=== PATIENT | male | born 1965 | race Caucasian/White ===

== ENCOUNTER 2016-08-21 16:59 | Inpatient (IN) | payer OTHER ==
[2016-08-21] MEDS ORDERED: Piperacillin/Tazobactam VIAL*) 3.375 GM VIAL (COMPD & OVERRIDE) IVPB ONE (17:50)
[2016-08-21] MEDS ORDERED: Lidocaine 2% JELLY* 6 ML JELLY TOPICAL ONE (18:00)
[2016-08-21] MEDS ORDERED: Bupivacaine 0.5% W/EPI SDV* 30 ML VIAL ONE (18:00)
[2016-08-21] MEDS ORDERED: Lidocaine 1% INJ* 10 MG/ML 30 ML SDV ONE (18:00)
[2016-08-21] MEDS ORDERED: Succinylcholine* 20 MG/ML 10 ML VIAL ONE (18:31)
[2016-08-21] MEDS ORDERED: Propofol* 10 MG/ML 20 ML BTL IV PUSH ONE ×2 (18:31→19:23)
[2016-08-21] MEDS ORDERED: fentaNYL* 50 MCG/ML 2 ML VIAL (100 MCG VIAL) ONE ×2 (18:31→19:23)
[2016-08-21] MEDS ORDERED: Lidocaine 2% PF * 5 ML VIAL ONE (18:31)
[2016-08-21] MEDS ORDERED: Acetaminophen IV 1GM/100ML * 100 ML ONE (19:49)
[2016-08-21] MEDS ORDERED: Acetaminophen IV 1GM/100ML * 100 ML IVPB ONE (19:50)
[2016-08-21] MEDS ORDERED: fentaNYL* 50 MCG/ML 2 ML VIAL (100 MCG VIAL) IV PRN (19:50)
[2016-08-21] MEDS ORDERED: Ondansetron INJ* 2 MG/ML VIAL IV PRN ×2 (19:50→19:55)
[2016-08-21] MEDS ORDERED: Morphine INJ* 2 MG/ML 1 ML SYRINGE IV PRN (19:55)
[2016-08-21] MEDS ORDERED: Acetaminophen TAB* 325 MG PO PRN (19:55)
--- NOTE | 2016-08-21 20:01 | SURGPN ---
Brief Operative Note - Surgery Procedures: Procedures OPERATIVE REPORT PRE-OP: Roshni-anal pain POST-OP: Same Roshni-anal abscess not found on exam PROCEDURE: Anorectal exam under anesthesia with rigid proctoscopy SURGEON: MD Ravi ANESTHESIA: General with local ASST: none IVF: 1 liter of crystalloid EBL: min SPECIMEN: none DRAIN: none WOUND CLASS: 4 COMPLICATIONS: none TO PACU
[2016-08-21 20:19] LABS: Hematocrit 40 % (42-52); Hemoglobin 13.4 g/dl (14.0-18.0); Mean Corpuscular HGB Conc 33 g/dl (31-36); Mean Corpuscular Hemoglobin 31 pg (27-31); Mean Corpuscular Volume 93 fL (80-94); Mean Platelet Volume 7 um3 (7.4-10.4); Red Cell Distribution Width 13 % (10.5-15); White Blood Count 13.3 10^3/ul (3.5-10.8)
[2016-08-21 20:36] LABS: Albumin 3.6 g/dL (3.2-5.2); BUN/Creatinine Ratio 9.9 (8-20); Calcium 8.9 mg/dL (8.6-10.3); EGFR African American 99.4 (>60); EGFR Non-African American 77.3 (>60); Globulin 2.7 g/dL (2-4); Total Bilirubin 1.9 mg/dL (0.2-1.0); Total Protein 6.3 g/dL (6.4-8.9)
[2016-08-21] MEDS ORDERED: Iohexol 300* (CONTRAST) 10 ML SDV IV ONE (20:49)
[2016-08-21 21:36] LABS: Urine Bacteria Absent (Absent); Urine Bilirubin Negative (Negative); Urine Glucose Negative (Negative); Urine Nitrite Negative (Negative)
[2016-08-21] MEDS: oxyCODONE/Acetamin 5/325 MG* TAB PO PRN (22:39)
[2016-08-21] MEDS: NS 0.9% 1000 ML* 1,000 ML IV SCH (22:41)
--- NOTE | 2016-08-21 22:55 | RAD ---
INDICATION: Pelvic pain. Evaluate for rectal abscess COMPARISON: None TECHNIQUE: Axial source images were obtained from the iliac crests through the symphysis pubis on administration of 87 mL of Omnipaque 300. FINDINGS: There are no CT abnormalities of the bony pelvis. The prostate is normal in size. There is stranding of the adjacent periprostatic fat. There is a a [id number] amount of free fluid in the intraperitoneal cavity. There is also mesenteric stranding. Evaluation is limited due to lack of oral contrast. There is no definitive intrapelvic abscess. There is a perirectal abscess measuring approximately 2.8 x 3.4 cm in transverse dimensions. There is mild stranding of the perirectal fat. Evaluation of bowel is limited without oral contrast. A portion of the appendix is visualized and appears normal in caliber and is surrounded by pelvic free fluid but this is not localized solely to the periappendiceal region. The superficial soft tissues appear normal. The bladder appears mildly trabeculated. IMPRESSION: 1. THERE IS FREE FLUID WITHIN THE INTRAPERITONEAL CAVITY WITH STRANDING OF THE INTRAPELVIC FAT. NO LOCALIZED ABSCESS IS SEEN. 2. THERE IS A PERIRECTAL ABSCESS DESCRIBED.
[2016-08-22] MEDS: oxyCODONE/Acetamin 5/325 MG* TAB PO PRN ×2 (03:33→23:35)
[2016-08-22] MEDS: NS 0.9% 1000 ML* 1,000 ML IV SCH ×2 (05:24→16:21)
[2016-08-22 06:18] LABS: Hematocrit 36 % (42-52); Hemoglobin 12.1 g/dl (14.0-18.0); Mean Corpuscular HGB Conc 34 g/dl (31-36); Mean Corpuscular Hemoglobin 31 pg (27-31); Mean Corpuscular Volume 93 fL (80-94); Mean Platelet Volume 7 um3 (7.4-10.4); Red Blood Count 3.85 10^6/ul (4.0-5.4); Red Cell Distribution Width 13 % (10.5-15); White Blood Count 12.2 10^3/ul (3.5-10.8)
[2016-08-22 06:22] LABS: Add Diff/Slide Review? Slide Review Added; Comments Flag Yes
[2016-08-22 06:56] LABS: Immature Granulocytes 10 % (0-9); Neutrophil % 76 % (38-83); RBC Morphology Normal (Normal)
[2016-08-22] MEDS ORDERED: Acetaminophen TAB* 325 MG ONE (11:50)
[2016-08-22] MEDS ORDERED: fentaNYL* 50 MCG/ML 2 ML VIAL (100 MCG VIAL) ONE (12:43)
[2016-08-22] MEDS ORDERED: Midazolam* 1 MG/ML 2 ML VIAL (2 MG) ONE (12:44)
[2016-08-22] MEDS ORDERED: Bupivacaine 0.25% EPI 200,000* 30 ML SDV ONE (12:49)
[2016-08-22] MEDS ORDERED: Dexamethasone IV* 4 MG/ML 1 ML (4 MG) ONE (13:02)
[2016-08-22] MEDS ORDERED: Famotidine IV* 10 MG/ML 2 ML (20 mg) ONE (13:02)
[2016-08-22] MEDS ORDERED: Propofol* 10 MG/ML 20 ML BTL IV PUSH ONE (13:02)
[2016-08-22] MEDS ORDERED: Lidocaine 2% PF * 5 ML VIAL ONE (13:02)
[2016-08-22] MEDS ORDERED: Rocuronium* 10 MG/ML VIAL ONE (13:03)
[2016-08-22] MEDS ORDERED: Lidocaine 2% JELLY* 6 ML JELLY TOPICAL ONE (13:20)
[2016-08-22] MEDS ORDERED: Ketorolac INJ* 30 MG/ML 1 ML VIAL ONE (13:47)
[2016-08-22] MEDS ORDERED: oxyCODONE/Acetamin 5/325 MG* TAB PO PRN (13:57)
--- NOTE | 2016-08-22 13:57 | SURGPN ---
Brief Operative Note - Surgery Procedures: Procedures OPERATIVE REPORT PRE-OP: Joan--rectal abscess POST-OP: Same PROCEDURE: Incision and drainage of joan-rectal abscess SURGEON: MD Ravi ANESTHESIA:General with local with Dr. Rodgers ASST: none IVF: 500 cc crystalloid EBL: min SPECIMEN: Pus for gram stain and culture DRAIN: Ronnie drain WOUND CLASS: 4 COMPLICATIONS: none TO PACU
--- NOTE | 2016-08-22 15:29 | OP ---
DATE OF OPERATION: 08/21/16 - ROOM #335 DATE OF : 61 SURGEON: Donald Rodrigues MD MARKETING UNDERWRITER: None. ANESTHESIOLOGIST: Dale Dela Cruz DO ANESTHESIA: General with local. PRE-OP DIAGNOSIS: Perianal discomfort, right greater than left. POST-OP DIAGNOSES: 1. Perianal discomfort, right greater than left. 2. Normal anorectal exam under anesthesia. 3. Normal rigid sigmoidoscopy to 10 to 12 cm. OPERATIVE PROCEDURE: 1. Anorectal exam under anesthesia. 2. Rigid sigmoidoscopy. ESTIMATED BLOOD LOSS: Minimal. SPECIMEN: None. COMPLICATIONS: None. BRIEF HISTORY: Mr. Richard Mondragon is a 50-year-old gentleman with a history of hypertension developed some severe perianal discomfort on Sunday night associated with a low-grade fever and poor oral intake in the last 24 hours. He was referred for surgical evaluation as there was concern for purulent drainage from the anus and he was sent from the office to the hospital for planned drainage of an apparent perianal/perirectal abscess. He had a normal colonoscopy 1 month ago. He states that over the past several months; however, he has had some perianal discomfort without associated fevers, urinary complaints, scrotal discomfort. This was bothersome, but Sunday night it worsened. He in now to undergo an exam under anesthesia with the planned incision and drainage of an abscess. The procedure was discussed with the patient and the risks but not limited to bleeding, infection, recurrence, further surgical intervention depending on findings, sphincter muscle injury causing incontinence , the risk of anesthesia were all explained. FINDINGS: There was some erythema along the right buttock area at the anal verge. No evidence of induration, fluctuance, or mass effect noted on physical exam on either side. The direct exam showed some whitish mucus material in the rectal vault, but no purulence, no pus, or obvious internal opening. Passing an 18-gauge needle in the soft tissue in the perianal area revealed no abscess cavity or pus. Rigid sigmoidoscopy to about 10 to 12 cm showed minimum amount of mucusy discharge along the rectal wall, but I did not appreciate any proctitis. DESCRIPTION OF PROCEDURE: Written informed consent was obtained. The patient was taken to the operating room and placed in the supine position. Preoperative antibiotics had been administered. Sequential compression devices were placed. General anesthesia was administered and then he was placed in the prone jackknife position. The perianal and buttock area were prepped and draped in the usual sterile fashion. Time-out verification was completed. Next, 0.5% Marcaine with epinephrine perianal block was then performed in the usual manner. There was some faint redness to the right of the anal verge extending onto the buttock cheek; however, careful palpation revealed no evidence of induration, mass effect, or fluctuance. The scrotum and testicles were unremarkable. The perineum showed no evidence of abnormality. There were a few external hemorrhoids noted. I appreciated no mass or abnormality in the left buttock cheek or perianal area. Digital rectal exam showed some slight decreased tone. Also on the glove was noted some whitish mucusy drainage, which was noted throughout the remainder of the case. Retractors were then inserted in the anus and with care, I was able to evaluate the entire anal canal and distal rectal mucosa. Here, I appreciated no internal openings, mass effect, significant internal hemorrhoidal disease, or distal rectum mucosal abnormality other than the whitish mucusy drainage. There was no purulence that I could identify nor internal opening and on digital exam deeper, I realized no asymmetry, mass, or fullness circumferentially around the distal rectum and anal canal. A rigid sigmoidoscopy was then performed to about 10 to 12 cm. I did appreciate no significant proctitis, although there was some mucusy discharge along the shirley even up to about 8 to 10 cm. The scope was then removed. I then used an 18-gauge needle to pass into the soft tissue to the right side of the anus and multiple passes revealed no abscess cavities, pus, drainage, fluid, or other abnormality. At this point, I decided to pursue no further attempt at intervention with plans for postoperative imaging. Dry gauze was placed between the buttock cheeks. The patient was extubated, placed in the supine position, taken back to the recovery room in stable condition. [id number]/[facility] #: [id number] ROYER
[2016-08-23] MEDS: NS 0.9% 1000 ML* 1,000 ML IV SCH (01:54)
--- NOTE | 2016-08-23 06:17 | OP ---
DATE OF OPERATION: 08/22/16 - ROOM #335 DATE OF : 61 SURGEON: Donald Rodrigues MD FLEET COORDINATOR: None. ANESTHESIOLOGIST: Dr. Rodgers. ANESTHESIA: General with local. PRE-OP DIAGNOSIS: Perirectal abscess. POST-OP DIAGNOSIS: Posterior horseshoe perirectal abscess. OPERATIVE PROCEDURE: Incision and drainage of perirectal abscess. INDICATIONS: Mr. Mondragon is a 51-year-old gentleman who presented yesterday to the office and subsequently transferred to the hospital for significant perianal discomfort present for the past several days. He was taken to the operating room last night and an abscess was not identified on exam. Subsequently, a CT of the abdomen and pelvis did show a posterior horseshoe- shaped abscess mainly on the right. He had been continued on IV antibiotics, now being taken back to the operating room for incision and drainage. The procedure was discussed with the patient including the risks and benefits, which were similar to the procedure performed yesterday. ESTIMATED BLOOD LOSS: Minimal. SPECIMENS: Pus for Gram stain and culture. DRAIN: A quarter inch [place] drain with one-quarter inch Nu Gauze packing. COMPLICATIONS: None. DESCRIPTION OF PROCEDURE: Written and informed consent was obtained, preoperative antibiotics had been administered, and the patient was taken to the operating room. General anesthesia was administered, he was placed in the prone jenaro knife position. Sequential compression devices and a warming blanket were applied. Perineum and buttocks were prepped and draped in the usual sterile fashion. Time-out verification was completed. Next, 0.5% Marcaine with epinephrine was infiltrated in a perianal block. At this time, the CT scan was reviewed in the operating room and using a 20-gauge longer needle with a 10 cc syringe, this punctured the right posterior anal verge area towards the coccyx. Here at approximately 2.5 cm deep, I entered pus pocket. The scalpel was then used to make an incision following the needle down into the cavity and we entered this. This was opened with a Lucy clamp and a large amount of creamy, foul-smelling pus was drained. This was opened up digitally and extended across the midline to the left side, although I did not extend more anteriorly on this side, and it was deeper and more extensive on the right and all the loculations were broken up. The cavity was irrigated with saline. Digital rectal exam showed no evidence of involvement of the sphincters and once again anoscopy showed no internal openings in the distal rectum or the anal canal to my view. Since the cavity extended across the midline to the left, I did make a counter incision in the skin and I passed a one-quarter inch [place] drain. This was sutured together in a loop to keep this portion of the abscess open. The remainder of the cavity, more on the right side, was packed with a one-quarter inch Nu Gauze. Dry sterile dressings were applied. The patient tolerated the procedure well, was taken to the recovery room in stable condition. [id number]/[facility] #: [id number] ROYER
[2016-08-23] MEDS: oxyCODONE/Acetamin 5/325 MG* TAB PO PRN ×3 (07:08→22:25)
--- NOTE | 2016-08-23 09:01 | PN ---
Progress Note - Progress Note SOAP: Subjective: Feels much better today He had two large bowel movements yesterday and is passing flatus Urinating without problem Tolerating liquids Objective: Temp Pulse Resp BP Pulse Ox 97.6 F 49 16 113/52 99 08/23/16 07:39 08/23/16 07:39 08/23/16 07:39 08/23/16 07:39 08/23/16 07:15 Intake & Output 08/21/16 08/22/16 08/23/16 08/24/16 06:59 06:59 06:59 06:59 Intake Total 2341 4620 Output Total 1425 800 0 Balance 916 3820 0 Weight 144 lb Intake: IV Fluids 2091 2825 NS (0.9%) 870 lr 1000 900 IVPB 210 105 Oral 40 1690 Output: Urine 1425 800 0 Other: # Bowel Movements 2 1 Estimated Stool Amount Medium Small PEX: Comfortable Lungs are clear Abd is softer and and non-distended. Bowel sounds are present and there is no tenderness. Joan-rectal area with some ecchymosis on right--abscess cavity posterior is clean and some of the packing was removed. [place] drain is in place. No odor or purulence. Extremities without edema. Assessment: POD# 1 s/p incision and drainage of joan-rectal abscess with drain placement and packing. CT findings of some free fluid and "mesenteric stranding" --I suspect this is secondary to abscess and his abdomen exam is benign and now having bowel movements. Will continue present management and follow for now, if necessary can repeat CT scan with po and IV contrast. Plan: Continue IV antibiotics Sitz bath Await cultures Portion of packing removed-will serially remove and eventually replace Increase activity and diet. Plan d/c home tomorrow.
[2016-08-23] MEDS: Ketorolac INJ* 30 MG/ML 1 ML VIAL IV PUSH PRN (14:07)
[2016-08-24] MEDS: oxyCODONE/Acetamin 5/325 MG* TAB PO PRN (06:51)
[2016-08-24] MEDS: Ketorolac INJ* 30 MG/ML 1 ML VIAL IV PUSH PRN (08:38)
--- NOTE | 2016-08-24 12:13 | PN ---
Progress Note - Progress Note Note: Surgery Progress: S: pain is manageable; drainage small to mod; elke po well; has had BM O: Vital Signs - 8 hr 08/24/16 08/24/16 08/24/16 06:51 07:28 08:00 Temperature 97.5 F Pulse Rate 65 Respiratory 18 18 Rate Blood Pressure 134/73 (mmHg) O2 Sat by Pulse 100 100 Oximetry 08/24/16 08:51 Temperature Pulse Rate Respiratory 18 Rate Blood Pressure (mmHg) O2 Sat by Pulse Oximetry Perianal area: some ecchymosis; mild tenderness to palp; min serosang drainage on dsg; ~ 8" of packing was advanced which he tolerated well. A/P: home today on po abx; office f/u 08/25
[2016-08-24 12:21] VITALS: BP 109/57
--- NOTE | 2016-08-25 13:02 | DS ---
CC: Romy Álvarez MD, [facility] DISCHARGE SUMMARY: DATE OF ADMISSION: 08/21/16 DATE OF DISCHARGE: 08/24/16 HOSPITAL COURSE: Please refer to admission history and physical for admission details. The patient was taken to the operating room by Dr. Rodrigues on 08/21/16, at which time, examination under anes thesia failed to isolate a perirectal abscess. The patient was subsequently scanned with CT showing a posterior perirectal abscess measuring up to 3.4 cm. The patient was therefore taken back to the operating room on 08/22/16, at which time, I and D of the posterior perirectal abscess was performed again by Dr. Rodrigues. Postoperatively, the patient defervesced and pain improved considerably. Packing was partially removed on postop day 1 and additional packing was advanced on postoperative d ay 2. As of the morning of discharge, the patient was afebrile with stable vital signs and pain wel l controlled. Instructions regarding wound care were given. He has an appointment with Dr. Jay er on 08/25/16 for further wound management. He was also discharged on Augmentin 875 mg b.i.d. x7 d ays. DANIAL BEAULIEU [id number]/[facility] #: [id number]
== END 2016-08-24 12:50 | disposition home or self-care (01) | DRG 254 ==
LOC: OR 16:59 → SSU 21:25 → OBSVTOIN 08-23 08:00
PROVIDERS: ADMIT Surgery; ATTEND Surgery
PROC: 0DJD8ZZ Inspection of Lower Intestinal Tract, Via Natural or Artificial Opening Endoscopic (ICD-10-PCS; 2016-08-21)
PROC: 0D9P70Z Drainage of Rectum with Drainage Device, Via Natural or Artificial Opening (ICD-10-PCS; principal; 2016-08-22 11:15)
DX: K61.1 Rectal abscess (principal); A69.20 Lyme disease, unspecified; I48.91 Unspecified atrial fibrillation; I10 Essential (primary) hypertension; K64.4 Residual hemorrhoidal skin tags
CPT/HCPCS: 36415; 72193; 80053; 81003; 81015; 85025; 87040; 87070; 87073; 87077; 87186; 87205; 87640; 87641; A9270-GY; G0378; J0330; J1100; J1885; J2001; J2250; J2543; J2704; J3010; Q9967